=== PATIENT | male | born 1950 | race Caucasian/White ===

== ENCOUNTER → 2016-05-18 | Outpatient (CLI) | payer OTHER ==
[~2016-05-18] MED LIST: ASPIRIN; AZOR 10/40 MG T1 TAB PO; CALCIUM + D 6001 TA1 PO; CELEXA20 MG PO; CITALOPRAM HBR40 MG PO; FISH OIL 1,2001 CAP PO; LIPITOR; MULTI-DAY1 TAB PO; MULTI-VITAMIN1 TAB; NORVASC; PRAVACHOL80 MG PO; PREVACID; SAW PALMETTO450 MG PO; VIAGRA; VITAMIN E100 UNI2 PO; ZOLOFT
--- NOTE | ~2016-05-18 | CT57 ---
[facility] A Service of [facility] & [facility] RADIOLOGY TEXT RESULTS PATIENT: NILSON FRANCO LOCATION: [facility] : 48 UNIT #: [id number] AGE: [address]: Lamonte Brady MD SEX: M ORDER DR: [id number] [facility] [address] [place], [place] [address] [id number] O MR#: [id number] Acc #: [id number] NAME: NILSON FRANCO : 1950 SEX: M STUDY DATE/TIME: 05/18/2016 15:38 UNIT: [facility] ROOM: STUDY DESCRIPTION: CT Chest Wo Cont Attending Physician: Lamonte Brady Jr., M.D. Referring Physician: Lamonte Brady Jr., M.D. Ordering Physician: Lamonte Brady Jr., M.D. Primary Care Physician: Lamonte Brady Jr., M.D. MEDICAL IMAGING REPORT This report is preliminary unless electronic signature is present EXAM CT of the chest without contrast, 05/18/2016 INDICATION Cough on and off for several months. The patient does have a history of melanoma and COPD. TECHNIQUE. Axial CT images were obtained from the thoracic inlet through the dome of the diaphragm. No intravenous contrast material was administered. This CT exam was performed with one or more of the following radiation dose reduction techniques: automatic exposure control, adjustment of mA and/or kV according to patient size, and iterative reconstruction. FINDINGS No acute infiltrates are identified. The thyroid gland and trachea appear within normal limits. There is a small hiatal hernia. There is aneurysmal dilatation of the ascending thoracic aorta which measures up to 4.1 cm. Remainder of the aorta measures within normal size limits. Mediastinal lymph nodes really do not appear pathologically enlarged. Patient does have extensive coronary artery calcifications. There is no pleural or pericardial effusion. Low attenuation lesion seen within the right hepatic lobe is nonspecific but is favored to be benign as is an additional lesion within the left hepatic lobe near the dome. There is a left renal cyst. No other acute abnormalities are seen within the upper abdomen. Review of bony windows demonstrates old right-sided rib fractures and probably old left-sided rib fractures as well. No aggressive osseous abnormalities are seen. IMPRESSION 1. No acute intrathoracic process is identified. No infiltrates are seen [facility] A Service of [facility] RADIOLOGY TEXT RESULTS PATIENT: NILSON FRANCO LOCATION: [facility] : 48 UNIT #: [id number] AGE: [address]: Lamonte Brady MD SEX: M ORDER DR: and mediastinal lymph nodes do not appear pathologically enlarged. 2. Aneurysmal dilatation of the ascending thoracic aorta measuring up to 4.1 cm. 3. Left renal cyst. Dictated by... Prisca Talbert M.D. THIS IS AN ELECTRONICALLY VERIFIED REPORT Prisca Talbert M.D. at 05/19/2016 9:09 AM NAE/josh TD: 05/18/2016 21:37 JOB #: [id number] MEDICAL IMAGING REPORT Page 1 of 1 COPY
[2016-05-18 15:51] LABS: POC - CREATININE 1.17 mg/dL (0.64-1.27); POC - GFR >60.0 mL/min (>60)
== END | disposition home or self-care (01) ==
LOC: CCAT 15:09
PROVIDERS: Family Medicine
DX: I77.89 Other specified disorders of arteries and arterioles (principal); I71.2 Thoracic aortic aneurysm, without rupture; N28.1 Cyst of kidney, acquired
CPT/HCPCS: 71250; 82565